=== PATIENT | female | born 1970 | race Caucasian/White ===

== ENCOUNTER → 2016-10-23 | Outpatient (CLI) | payer OTHER ==
[~2016-10-23] MED LIST: ATIVAN1 MG; AVPAK AZITHROM250 M1 PO; BUSPAR5 MG PO; CIPRO500 MG PO; HCTZ/TRIAMTEREN1 CA2 PO; MOTRIN800 MG PO; NORCO 5-325 TA1 EACH PO; NORVASC5 MG PO; ULTRAM50 MG PO; VICODIN 5/500 505 MG PO; VICODIN ES 7501 TAB PO; ZOLOFT100 MG PO; ZOLOFT50 MG PO; Zofran4 MG PO
== END | disposition home or self-care (01) ==
LOC: MAMMO 15:42
DX: Z12.31 Encounter for screening mammogram for malignant neoplasm of breast (principal)

== ENCOUNTER 2017-01-17 00:22 | Emergency (ER) | payer OTHER ==
[~2017-01-17] VITALS: Ht 167.6 cm; Wt 102.1 kg
[2017-01-17 00:44] LABS: BILIRUBIN NEGATIVE (NEGATIVE); BLOOD NEGATIVE (NEGATIVE); CLARITY CLEAR (CLEAR); COLOR YELLOW (YELLOW); GLUCOSE NEGATIVE (NEGATIVE); KETONE NEGATIVE (NEGATIVE); LEUKO ESTERASE NEGATIVE (NEGATIVE); NITRITE NEGATIVE (NEGATIVE); UROBILINOGEN 0.2 E.U./dl (0.2-1.0)
[2017-01-17 00:49] LABS: BASO # 0.1 10*3/uL (0.0-0.1); BASO % 0.5 % (0.0-1.0); EOS # 0.3 10*3/uL (0.0-0.4); EOS % 2.4 % (1.0-4.0); HEMATOCRIT 37.9 % (37.0-47.0); HEMOGLOBIN 13.1 g/dl (12.0-16.0); LYMPH # 3.2 10*3/uL (1.3-4.4); LYMPH % 30.2 % (27.0-41.0); MEAN CELL VOLUME 87.7 fl (81.0-99.0); MEAN CORPUSCULAR HGB 30.3 pg (27.0-31.0); MEAN CORPUSCULAR HGB CONC 34.6 g/dl (33.0-37.0); MEAN PLATELET VOLUME 9.7 fl (9.6-12.3); MONO # 0.7 10*3/uL (0.1-1.0); MONO % 6.4 % (3.0-9.0); NEUT # 6.4 10*3/uL (2.3-7.9); NEUT % 59.9 % (47.0-73.0); PLATELET COUNT AUTOMATED 221 10*3/uL (130-400); RED BLOOD COUNT 4.32 10*6/uL (4.10-5.10); RED CELL DISTRI WIDTH 13.2 % (0-14.5); WHITE BLOOD COUNT 10.6 10*3/uL (4.8-10.8)
[2017-01-17 00:55] LABS: EPITHELIAL CELLS 20-25; RBC 0-2 rbc/hpf (0-2); WBC 0-2 wbc/hpf (0-5)
[2017-01-17] MEDS ORDERED: KETOROLAC10 MG PO (01:01)
[2017-01-17 01:06] LABS: ALBUMIN 3.4 gm/dl (3.1-4.5); ALKALINE PHOSPHATASE 93 U/L (45-117); BUN 14 mg/dl (7-24); CHLORIDE 104 mmol/L (98-107); CREATININE 0.76 mg/dL (0.55-1.02); LIPASE 385 U/L (73-393); POTASSIUM 3.6 mmol/L (3.5-5.1); SGOT/AST 16 IU/L (3-35); SGPT/ALT 21 U/L (12-78); SODIUM 138 mmol/L (136-145); TOTAL PROTEIN 7.4 gm/dL (6.4-8.2)
== END 2017-01-17 02:09 | disposition home or self-care (01) ==
LOC: ED 00:22
PROVIDERS: Student in an Organized Health Care Education/Training Program
DX: R10.9 Unspecified abdominal pain (principal); Z79.899 Other long term (current) drug therapy; Z90.49 Acquired absence of other specified parts of digestive tract

== ENCOUNTER 2017-06-20 18:58 | Emergency (ER) | payer OTHER ==
[~2017-06-20] VITALS: Wt 90.7 kg
[~2017-06-20 18:58] MED LIST changes: +KETOROLAC10 MG PO
[2017-06-20] MEDS ORDERED: ATIVAN0.5 MG PO (19:26)
[2017-06-20] MEDS ORDERED: BUSPIRONE HCL10 MG PO (19:26)
[2017-06-20] MEDS ORDERED: GABAPENTIN600 MG PO (19:27)
[2017-06-20] MEDS ORDERED: LISINOPRIL10 M1 PO (19:27)
[2017-06-20] MEDS ORDERED: HYDROCHLOROTHIA25 M1 PO (19:27)
[2017-06-20] MEDS ORDERED: VITAMIN D5000 UNI1 PO (19:28)
[2017-06-20] MEDS ORDERED: VOLTAREN100 GM T (19:28)
[2017-06-20 19:48] LABS: BASO % 0.3 % (0.0-1.0); EOS # 0.2 10*3/uL (0.0-0.4); EOS % 2.7 % (1.0-4.0); HEMATOCRIT 39.1 % (37.0-47.0); HEMOGLOBIN 13.3 g/dl (12.0-16.0); LYMPH % 29.5 % (27.0-41.0); MEAN CELL VOLUME 87.3 fl (81.0-99.0); MEAN CORPUSCULAR HGB 29.7 pg (27.0-31.0); MEAN PLATELET VOLUME 9.8 fl (9.6-12.3); MONO # 0.5 10*3/uL (0.1-1.0); NEUT # 3.9 10*3/uL (2.3-7.9); NEUT % 59.2 % (47.0-73.0); PLATELET COUNT AUTOMATED 217 10*3/uL (130-400); RED BLOOD COUNT 4.48 10*6/uL (4.10-5.10); RED CELL DISTRI WIDTH 13.3 % (0-14.5); WHITE BLOOD COUNT 6.7 10*3/uL (4.8-10.8)
[2017-06-20 20:03] LABS: ALBUMIN 3.8 gm/dl (3.1-4.5); ALKALINE PHOSPHATASE 102 U/L (45-117); BUN 15 mg/dl (7-24); CHLORIDE 100 mmol/L (98-107); CREATININE 0.93 mg/dL (0.55-1.02); POTASSIUM 3.3 mmol/L (3.5-5.1); SGOT/AST 24 IU/L (3-35); SGPT/ALT 29 U/L (12-78); SODIUM 135 mmol/L (136-145); TOTAL PROTEIN 8.2 gm/dL (6.4-8.2)
[2017-06-20] MEDS ORDERED: LEVOFLOXACIN500 MG PO (21:53)
[2017-06-20] MEDS ORDERED: PROAIR HFA8.5 GM INH (21:53)
[2017-06-20] MEDS ORDERED: TESSALON PERLE100 MG PO (21:53)
== END 2017-06-20 21:52 | disposition home or self-care (01) ==
LOC: ED 18:58
PROVIDERS: Emergency Medicine
DX: J20.9 Acute bronchitis, unspecified (principal); Z90.49 Acquired absence of other specified parts of digestive tract; Z98.890 Other specified postprocedural states; Z79.899 Other long term (current) drug therapy

== ENCOUNTER → 2019-07-22 | Outpatient (CLI) | payer OTHER ==
[~2019-07-22] MED LIST changes: +ATIVAN0.5 MG PO; +BUSPIRONE HCL10 MG PO; +GABAPENTIN600 MG PO; +HYDROCHLOROTHIA25 M1 PO; +LEVOFLOXACIN500 MG PO; +LISINOPRIL10 M1 PO; +PROAIR HFA8.5 GM INH; +TESSALON PERLE100 MG PO; +VITAMIN D5000 UNI1 PO; +VOLTAREN100 GM T
== END | disposition home or self-care (01) ==
LOC: CARD 01:03
DX: I10 Essential (primary) hypertension (principal); R00.2 Palpitations

== ENCOUNTER → 2020-12-27 | Outpatient (CLI) | payer OTHER | END | disposition home or self-care (01) | LOC: COVID19 16:09 | PROVIDERS: ATTEND Internal Medicine | DX: Z11.52 Encounter for screening for COVID-19 (principal) ==